=== PATIENT | female | born 1955 | race Caucasian/White ===

== ENCOUNTER 2016-09-28 19:09 | Emergency (ER) | payer OTHER ==
[~2016-09-28] VITALS: Ht 162.6 cm; Wt 88.5 kg
[~2016-09-28 19:09] MED LIST: ALBUTEROL2.5 MG/31 INH; ALPRAZOLAM ER1 MG PO; CLARITIN10 MG PO; CLONAZEPAM 0.50.5 M1 PO; DEPAKOTE500 MG PO; GLUCOPHAGE500 MG PO; HYDROCHLOROTHIA25 M1 PO; INVEGA6 MG PO; LISINOPRIL10 MG PO; LOPRESSOR 50 MG50 M1 PO; LOVASTAT20 PO; MEVACOR 20 MG T20 MG PO; NORVASC 2.5 MG2.5 M1 PO; VALIUM5 MG PO; VYTORIN 10-101 EACH
[2016-09-28 22:01] VITALS: BP 130/71
== END 2016-09-28 22:01 | disposition home or self-care (01) ==
LOC: ER 19:09
DX: S39.012A Strain of muscle, fascia and tendon of lower back, initial encounter (principal); S09.8XXA Other specified injuries of head, initial encounter; F31.9 Bipolar disorder, unspecified; F20.9 Schizophrenia, unspecified; I10 Essential (primary) hypertension; E11.9 Type 2 diabetes mellitus without complications; Z98.890 Other specified postprocedural states; Z91.018 Allergy to other foods; Z88.0 Allergy status to penicillin; Z88.8 Allergy status to other drugs, medicaments and biological substances; W01.0XXA Fall on same level from slipping, tripping and stumbling without subsequent striking against object, initial encounter; Y93.89 Activity, other specified; Y92.89 Other specified places as the place of occurrence of the external cause; Y99.8 Other external cause status

== ENCOUNTER → 2017-10-04 | Outpatient (CLI) | payer OTHER | LOC: ULTRA 06:58 | DX: R60.0 Localized edema (principal); M79.89 Other specified soft tissue disorders ==